=== PATIENT | female | born 1960 | race Asian ===

== ENCOUNTER 2017-01-14 11:51 | Emergency (ER) | payer MEDICAID ==
[~2017-01-14] VITALS: Ht 160 cm; Wt 59.9 kg
[~2017-01-14 11:51] MED LIST: NORCO 5-325 TA1 EACH ORAL; NORVASC5 MG ORAL; SENOKOT-S8.6 TAB/50 ORAL; TRICOR145 MG ORAL; UNOBMED
--- NOTE | 2017-01-14 12:33 | Emergency Room Report ---
History of Present Illness General Chief Complaint: Wound Recheck/Suture Removal Source: Medical Record Present Illness HPI 56 YO Female presents to the ED c/O recent appendectomy, and was told to follow up 1 week after surgery. pt. denies fevers, chills, discharge or progressive erythema about the surgical incisions. pt. was admitted here 1 week ago and had appendectomy performed. Pt. denies trauma or fall. denies constipation or diarrhea. pt reports that she has completed all previously prescribed abx. denies nausea, vomiting, or rashes. Denies CP, Palpitations, LOC, AMS, dizziness , Changes in Vision, Sensation, paresthesias, or a sudden severe headache. Allergies: Coded Allergies: No Known Allergies (Unverified , 01/06/17) Patient History Past Medical History: see triage record Past Surgical History: none Pertinent Family History: none Last Menstrual Period: Post Now: No : 2 Para: 2 Reviewed Nursing Documentation: PMH: Agreed, PSxH: Agreed Nursing Documentation-PMH Past Medical History: No History, Except For Hx Cardiac Problems: Yes Hx Hypertension: Yes Hx Cancer: No Hx Gastrointestinal Problems: No Hx Neurological Problems: No Review of Systems All Other Systems: negative except mentioned in HPI Physical Exam Vital Signs Date Time Temp Pulse Resp B/P Pulse Ox O2 Delivery O2 Flow Rate FiO2 01/14/17 11:55 97.9 55 18 110/58 97 Room Air Sp02 EP Interpretation: reviewed, normal General Appearance: no apparent distress, alert, GCS 15, non-toxic Head: normocephalic, atraumatic Eyes: bilateral eye PERRL, bilateral eye normal inspection ENT: hearing grossly normal, normal pharynx, no angioedema, normal voice Neck: full range of motion, supple/symm/no masses Respiratory: lungs clear, normal breath sounds, speaking full sentences Cardiovascular #1: regular rate, rhythm, no edema Gastrointestinal: normal bowel sounds, non tender, soft, no guarding, no rebound, other - surgical incisions are covered with steri strips, there is no erythema, no d/c, no increased temperature to palpation, a total of three surgical incisions. Rectal: deferred Musculoskeletal: back normal, gait/station normal, normal range of motion, non- tender Neurologic: alert, oriented x3, responsive, motor strength/tone normal, sensory intact, speech normal Psychiatric: judgement/insight normal, memory normal, mood/affect normal Skin: normal color, no rash, warm/dry, well hydrated, other - surgical incisions are covered with steri strips, there is no erythema, no d/c, no increased temperature to palpation, a total of three surgical incisions Medical Decision Making PA Attestation Dr. carver is my supervising Physician whom patient management has been discussed with. Diagnostic Impression: Primary Impression: Encounter for wound re-check ER Course 56 YO Female presents to the ED c/O recent appendectomy, and was told to follow up 1 week after surgery. pt. denies fevers, chills, discharge or progressive erythema about the surgical incisions. pt. was admitted here 1 week ago and had appendectomy performed. Pt. denies trauma or fall. denies constipation or diarrhea. pt reports that she has completed all previously prescribed abx. denies nausea, vomiting, or rashes. Denies CP, Palpitations, LOC, AMS, dizziness , Changes in Vision, Sensation, paresthesias, or a sudden severe headache. Ddx considered but are not limited to laceration, tendon injury, cellulitis, dehiscence. Vital signs: are WNL, pt. is afebrile H&PE are most consistent with: healing surgical incisions for recent appendectomy., no evidence of infection at this time. ORDERS: none required at this time, the diagnosis is clinical ED INTERVENTIONS: - I called the office of Dr. Thurman and facilitated scheduling pt. a follow up appt. for January 20 at 11:10 am . DISCHARGE: At this time pt. is stable for d/c to home. Will provide printed patient care instructions, and any necessary prescriptions. Care plan and follow up instructions have been discussed with the patient prior to discharge. Last Vital Signs Date Time Temp Pulse Resp B/P Pulse Ox O2 Delivery O2 Flow Rate FiO2 01/14/17 11:55 97.9 55 18 110/58 97 Room Air Disposition: HOME, SELF-CARE Condition: Stable Referrals: NOT CHOSEN IPA/MD,REFERRING (PCP) Patient Instructions: Medical Screening Exam, Wound Check Additional Instructions: YOU HAVE FOLLOW UP APPT. SCHEDULED FOR ThursdayJANUARY 20 @ 11:[address] Thurman at his OFFICE : [address] [place] [address], [address] , [place] [address] please call his office if you have any questions: [phone] Take any previously prescribed medications as directed. - Please note that this Emergency Department Report was dictated using [employer] map plotter operator technology software, occasionally this can lead to erroneous entry secondary to interpretation by the dictation equipment. Renae Walls Jan 14, 2017 12:33
[2017-01-14 12:42] VITALS: BP 110/58
== END 2017-01-14 12:42 | disposition home or self-care (01) ==
LOC: EMR 12:12
DX: Z48.817 Encounter for surgical aftercare following surgery on the skin and subcutaneous tissue (principal); I10 Essential (primary) hypertension
CPT/HCPCS: 99282